=== PATIENT | female | born 1955 | race Caucasian/White ===

== ENCOUNTER → 2020-08-26 | Outpatient (CLI) | payer OTHER | LOC: SJCVC 15:52 | PROVIDERS: ATTEND Nuclear Medicine Nuclear Cardiology | DX: I82.401 Acute embolism and thrombosis of unspecified deep veins of right lower extremity (principal); M06.9 Rheumatoid arthritis, unspecified; M17.10 Unilateral primary osteoarthritis, unspecified knee; F32.9 Major depressive disorder, single episode, unspecified; Z79.899 Other long term (current) drug therapy; Z87.891 Personal history of nicotine dependence ==

== ENCOUNTER → 2020-09-02 | Outpatient (CLI) | payer OTHER ==
[~2020-09-02] VITALS: Ht 180.3 cm; Wt 106.8 kg
[~2020-09-02] MED LIST: ELIQUIS5 MG PO; INVEGA SUS156 MG/1 M IM; MELATONIN5 MG PO; PALIPERIDONE ER6 MG PO; TYLENOL325 MG PO
[2020-09-02 11:59] LABS: HEMATOCRIT 42.1 % (37.0-47.0); MCH 28.6 pg (26.0-34.0); MCHC 33.3 g/dL (28.0-37.0); MCV 85.9 fL (80.0-100.0); RBC 4.9 mil/uL (4.20-5.00); RDW 15.5 % (10.5-14.5); WBC 9.2 thou/uL (4.0-11.0)
[2020-09-02 12:08] LABS: CALCIUM 8.8 mg/dL (8.5-10.1); CREATININE 1.2 mg/dL (0.6-1.0)
[2020-09-02 12:13] VITALS: BP 112/80
[2020-09-02 14:00] VITALS: BP 94/70
== END | disposition home or self-care (01) ==
LOC: CATH 08:51
PROVIDERS: ATTEND Nuclear Medicine Nuclear Cardiology
DX: I87.1 Compression of vein (principal); I87.323 Chronic venous hypertension (idiopathic) with inflammation of bilateral lower extremity; M79.605 Pain in left leg; M79.604 Pain in right leg; R22.9 Localized swelling, mass and lump, unspecified; R22.43 Localized swelling, mass and lump, lower limb, bilateral; I25.2 Old myocardial infarction; M19.90 Unspecified osteoarthritis, unspecified site; M06.9 Rheumatoid arthritis, unspecified; F32.9 Major depressive disorder, single episode, unspecified; Z98.890 Other specified postprocedural states; Z79.899 Other long term (current) drug therapy; Z79.01 Long term (current) use of anticoagulants; Z90.49 Acquired absence of other specified parts of digestive tract; Z87.891 Personal history of nicotine dependence